=== PATIENT | male | born 1965 | race Caucasian/White ===

== ENCOUNTER → 2020-05-09 | Outpatient (CLI) | payer BC ==
[~2020-05-09] MED LIST: ASPI325B; LISI20; LISI5 PO; OXYACE5T; OXYACE5T PO
== END | disposition home or self-care (01) ==
LOC: LAB SHORT 18:34 → LAB 18:34
DX: E11.65 Type 2 diabetes mellitus with hyperglycemia (principal)
CPT/HCPCS: 82043

== ENCOUNTER 2021-11-17 07:42 | Day surgery (SDC) | payer BC ==
[~2021-11-17] VITALS: Ht 167.6 cm; Wt 86.7 kg
[~2021-11-17 07:42] MED LIST changes: +AMARYL4 M1 PO; +AMLODIPINE PO; +ATOR10 PO; +JARDIANCE25 MG PO; +LOSARTAN-HCTZ1 EAC5 PO; +TRADJENTA5 MG PO
--- NOTE | 2021-11-17 08:52 | NUR ---
Lungs clear T/O to Auscultation. History, Chart, Medications and Allergies reviewed before start of procedure.Patient confirms NPO status and agrees with scheduled surgery. Pre-Op teaching done. Pt verbalizes understanding. Patient States Post-Procedure ride home has been arranged.
--- NOTE | 2021-11-17 08:57 | NUR ---
11/17/21 0857 Xenia Eldridge History, Chart, Medications and Allergies reviewed before start of procedure. Patient confirms NPO status and agrees with scheduled surgery. 3-LEAD EKG REVIEWED WITH PHYSICIAN PRIOR TO START OF PROCEDURE. MONITOR INTACT WITH CONTINUOUS PULSE OXIMETRY AND INTERMITTENT BP. PATIENT DETERMINED TO BE ASA APPROPRIATE FOR PROPOFOL SEDATION PRIOR TO START OF PROCEDURE BY DR. MEDEROS.
--- NOTE | 2021-11-17 09:55 | NUR ---
Patient up to Ambulate independently. Gait steady. Discharge instructions reviewed with patient. Patient verbalizes understanding. Copy given to patient to take home. Patient States Post-Procedure ride home has been arranged. Discharged via wheelchair to private car for ride home.
== END 2021-11-17 09:55 | disposition home or self-care (01) ==
LOC: ORSCMMR 07:42 → ORD 09:00 → ORSCMMR 09:55
PROVIDERS: Internal Medicine Gastroenterology
PROC: 0DBK8ZX Excision of Ascending Colon, Via Natural or Artificial Opening Endoscopic, Diagnostic (ICD-10-PCS; principal; 2021-11-17 09:00)
DX: Z12.11 Encounter for screening for malignant neoplasm of colon (principal); D12.2 Benign neoplasm of ascending colon; E11.9 Type 2 diabetes mellitus without complications; E78.00 Pure hypercholesterolemia, unspecified; Z79.899 Other long term (current) drug therapy
CPT/HCPCS: 82947; 88305; J2704; J7120

== ENCOUNTER → 2023-12-21 | Outpatient (CLI) | payer BC ==
[~2023-12-21] MED LIST changes: +DOXY100 PO; +LOSA25 PO; +METO25 PO; +OXYACE7.5T PO; +SENNA LAXATIVE8.6 MG PO; +VISBIOME 112.51 EACH PO
[2023-12-21 16:09] LABS: Bun/Creatinine Ratio 19.7 (12.0-20.0); Calcium, Blood 9.3 mg/dL (8.5-10.1); Creatinine, Blood 0.71 mg/dL (0.60-1.20); Potassium, Blood 3.9 mmol/L (3.5-5.5)
== END | disposition home or self-care (01) ==
LOC: LAB SHORT 11:15 → LAB 11:15
PROVIDERS: Hospitalist
DX: N17.9 Acute kidney failure, unspecified (principal)
CPT/HCPCS: 80048